=== PATIENT | male | born 1985 | race African-American/Black ===

== ENCOUNTER 2019-08-27 22:41 | Emergency (ER) | payer SELFPAY | END 2019-08-27 23:08 | disposition home or self-care (01) | LOC: ERS 22:41 | DX: J11.1 Influenza due to unidentified influenza virus with other respiratory manifestations (principal); F17.210 Nicotine dependence, cigarettes, uncomplicated | CPT/HCPCS: 99283 ==

== ENCOUNTER 2019-11-12 10:58 | Emergency (ER) | payer SELFPAY, OTHER ==
[2019-11-12] MEDS ORDERED: Acetaminophen 500 MG TAB ONE (11:28)
== END 2019-11-12 12:52 | disposition home or self-care (01) ==
LOC: ERS 10:58
DX: B34.9 Viral infection, unspecified (principal); F17.210 Nicotine dependence, cigarettes, uncomplicated
CPT/HCPCS: 87804; 99283